=== PATIENT | male | born 1960 | race Caucasian/White ===

== ENCOUNTER 2017-02-19 12:29 | Emergency (ER) | payer OTHER ==
[~2017-02-19] VITALS: Ht 167.6 cm; Wt 78.2 kg
[~2017-02-19 12:29] MED LIST: ASPI-1182 PO; METF500T4 PO; METH10 PO; PRAV20TA4 PO
[2017-02-19] MEDS ORDERED: INSU100V12 SQ (12:40)
[2017-02-19] MEDS ORDERED: INSNPH SQ (12:40)
[2017-02-19 12:42] LABS: GLUCOSE,POINT OF CARE 238 MG/DL (70-110)
[2017-02-19] MEDS ORDERED: CARBAMIDE PEROXIDE 6.5% 15 ML OTIC SOLUTION AS ONE (13:15)
[2017-02-19] MEDS ORDERED: HYDROGEN PEROXIDE 118 ML SOLUTION TP ONE (13:30)
[2017-02-19 14:08] VITALS: BP 145/95
== END 2017-02-19 14:26 | disposition home or self-care (01) ==
LOC: EMS 12:30
DX: H61.22 Impacted cerumen, left ear (principal); R03.0 Elevated blood-pressure reading, without diagnosis of hypertension; E11.9 Type 2 diabetes mellitus without complications; F17.210 Nicotine dependence, cigarettes, uncomplicated; F11.90 Opioid use, unspecified, uncomplicated; Z79.4 Long term (current) use of insulin
CPT/HCPCS: 69209; 82962; 99283

== ENCOUNTER 2017-05-15 11:10 | Inpatient (IN) | payer OTHER ==
[~2017-05-15] VITALS: Ht 167.6 cm; Wt 77.3 kg
[~2017-05-15 11:10] MED LIST changes: -ASPI-1182 PO; +INSNPH SQ; +INSU100V12 SQ; -METF500T4 PO; -PRAV20TA4 PO
[2017-05-15 11:38] LABS: GLUCOSE,POINT OF CARE 226 MG/DL (70-110)
[2017-05-15] MEDS ORDERED: IBUPROFEN 800 MG TABLET PO ONE (12:45)
[2017-05-15] MEDS ORDERED: LIDOCAINE HCL 1% 10 ML VIAL INJ ONE (12:45)
[2017-05-15] MEDS ORDERED: POVIDONE-IODINE 10% 15 ML SOLUTION UD TP ONE (12:45)
[2017-05-15 14:56] LABS: EOSINOPHILS % (AUTO) 1.5 % (1.0-6.0); HEMATOCRIT 41.1 % (41-53); HEMOGLOBIN 13.7 g/dL (13.5-17.5); LYMPHOCYTES # (AUTO) 2.3 K/uL (1.0-4.8); LYMPHOCYTES % (AUTO) 21.7 % (22.0-44.0); MEAN CORPUSCULAR HEMOGLOBIN 28.8 pg (26.0-34.0); MEAN CORPUSCULAR HGB CONC 33.3 G/dL (31.0-37.0); MEAN CORPUSCULAR VOLUME 86 fL (80-100); MONOCYTES # (AUTO) 0.8 K/uL (0.1-1.0); MONOCYTES % (AUTO) 7.7 % (2.0-9.0); NEUTROPHILS # (AUTO) 7.2 K/uL (1.8-7.7); NEUTROPHILS % (AUTO) 68.1 % (40.0-70.0); PLATELET COUNT (AUTO) 213 K/uL (150-450); RED BLOOD CELL COUNT(AUTO) 4.76 MIL/uL (4.50-5.90); RED CELL DISTRIBUTION WIDTH 14.3 % (11.5-14.5)
[2017-05-15 15:48] LABS: ANION GAP 8 mmol/L (8-16); CALCIUM, TOTAL 9.3 mg/dL (8.8-10.5); CARBON DIOXIDE 32 mmol/L (22-29); CHLORIDE 101 mmol/L (98-107); CREATININE 0.63 mg/dL (0.60-1.30); GLOMERULAR FILTR. RATE CALC > 60 mL/min (>60); GLUCOSE,RANDOM 149 mg/dL (70-110); SODIUM SERUM 141 mmol/L (136-145); UREA NITROGEN, BLOOD 8 mg/dL (7-18)
[2017-05-15 15:55] LABS: ALANINE AMINOTRANSFERASE 38 U/L (12-78); ALBUMIN 3.3 g/dL (3.4-5.0); ALKALINE PHOSPHATASE 104 U/L (46-116); ASPARTATE AMINOTRANSFERASE 30 U/L (15-37); BILIRUBIN,TOTAL 0.3 mg/dL (0.1-1.0)
[2017-05-15] MEDS ORDERED: PIPERACILLIN/TAZO 3.375 GM/D5W 50 ML IV ONE (16:30)
[2017-05-15] MEDS ORDERED: VANCOMYCIN HCL 1 GM/D5% WATER 200 ML IV ONE (16:30)
[2017-05-15] MEDS ORDERED: SODIUM CHLORIDE 0.9% 1,000 ML IV ONE ×2 (16:30)
[2017-05-15 16:31] LABS: LACTIC ACID 2.2 mmol/L (0.4-2.0)
[2017-05-15] MEDS ORDERED: 0.9% SODIUM CHLORIDE 10 ML SYRINGE IVP PRN (16:45)
[2017-05-15] MEDS ORDERED: ONDANSETRON HCL 4 MG/2 ML VIAL IVP PRN (16:45)
[2017-05-15] MEDS ORDERED: ACETAMINOPHEN 325 MG TABLET PO PRN (16:45)
[2017-05-15 19:36] VITALS: BP 129/79
== END 2017-05-15 20:00 | disposition left against medical advice (07) | DRG 383 ==
LOC: EMS 11:11 → 4E 17:48
PROVIDERS: ADMIT Internal Medicine; ATTEND Internal Medicine
DX: L03.115 Cellulitis of right lower limb (principal); E11.9 Type 2 diabetes mellitus without complications; L02.415 Cutaneous abscess of right lower limb; F11.90 Opioid use, unspecified, uncomplicated; F17.210 Nicotine dependence, cigarettes, uncomplicated; Z71.6 Tobacco abuse counseling; Z79.899 Other long term (current) drug therapy; Z79.4 Long term (current) use of insulin
CPT/HCPCS: 82962; 83605; 87040; 96365; 96366; 96368; 99285; J2543; J3370; J3490

== ENCOUNTER 2017-08-29 13:51 | Emergency (ER) | payer OTHER ==
[~2017-08-29] VITALS: Ht 165.1 cm; Wt 81.8 kg
[2017-08-29] MEDS ORDERED: METF500T6 PO (14:19)
[2017-08-29 17:23] VITALS: BP 130/68
== END 2017-08-29 17:26 | disposition home or self-care (01) ==
LOC: EMS 13:57
DX: H92.02 Otalgia, left ear (principal); H91.92 Unspecified hearing loss, left ear; E11.9 Type 2 diabetes mellitus without complications; F17.210 Nicotine dependence, cigarettes, uncomplicated; F11.90 Opioid use, unspecified, uncomplicated; Z79.4 Long term (current) use of insulin
CPT/HCPCS: 99281

== ENCOUNTER 2019-06-10 12:40 | Emergency (ER) | payer OTHER ==
[~2019-06-10] VITALS: Ht 170.2 cm; Wt 77.3 kg
[~2019-06-10 12:40] MED LIST changes: +METF-960 PO
[2019-06-10 13:05] VITALS: BP 134/89
[2019-06-10 13:21] LABS: GLUCOSE,POINT OF CARE 212 MG/DL (70-110)
[2019-06-10] MEDS ORDERED: LIDOCAINE 1%/EPI 1:200,000/PF 10 ML VIAL INJ ONE (14:30)
[2019-06-10] MEDS ORDERED: PERTUSS(ACELL),DIPH,TET VAC/PF 0.5 ML VIAL IM ONE (14:30)
[2019-06-10] MEDS ORDERED: POVIDONE-IODINE 10% 15 ML SOLUTION UD TP ONE (14:45)
== END 2019-06-10 16:23 | disposition home or self-care (01) ==
LOC: EMS 12:42
DX: L02.415 Cutaneous abscess of right lower limb (principal); L03.115 Cellulitis of right lower limb; R03.0 Elevated blood-pressure reading, without diagnosis of hypertension; E11.9 Type 2 diabetes mellitus without complications; F11.90 Opioid use, unspecified, uncomplicated; Z87.891 Personal history of nicotine dependence; Z79.4 Long term (current) use of insulin; Z79.84 Long term (current) use of oral hypoglycemic drugs
CPT/HCPCS: 10060; 82962; 90471; 90715; 99283; J3490

== ENCOUNTER 2019-08-02 10:00 | Emergency (ER) | payer OTHER ==
[~2019-08-02] VITALS: Ht 167.6 cm; Wt 75.0 kg
[2019-08-02] MEDS ORDERED: INSLAN SQ (10:09)
[2019-08-02] MEDS ORDERED: INSNOV SQ (10:09)
[2019-08-02 10:10] VITALS: BP 145/95
[2019-08-02] MEDS ORDERED: LIDOCAINE 1%/EPI 1:200,000/PF 30 ML VIAL INJ ONE (10:15)
== END 2019-08-02 11:41 | disposition home or self-care (01) ==
LOC: EMS 10:01
DX: L02.416 Cutaneous abscess of left lower limb (principal); E11.9 Type 2 diabetes mellitus without complications; F11.90 Opioid use, unspecified, uncomplicated; F17.210 Nicotine dependence, cigarettes, uncomplicated; Z79.4 Long term (current) use of insulin
CPT/HCPCS: 10060; 99283; J3490